=== PATIENT | male | born 1980 | race Caucasian/White ===

== ENCOUNTER 2019-08-09 19:22 | Emergency (ER) | payer OTHER ==
[2019-08-09] MEDS ORDERED: Lidocaine 1% with EPINEPHrine 1:100,000 20 ML MDV INJECT ONE (20:05)
[2019-08-09] MEDS ORDERED: Bupivacaine 0.5% 10 ML SDV INJECT ONE (20:05)
[2019-08-09] MEDS ORDERED: Cephalexin 500 MG Cap PO STA (20:10)
--- NOTE | 2019-08-09 20:17 | EDM.PDOC ---
ED HPI GENERAL MEDICAL PROBLEM - General Chief Complaint: Upper Extremity Injury/Pain Stated Complaint: ELBOW INJURY Time Seen by Provider: 08/09/19 19:42 Source of Information: Reports: Patient History Limitations: Reports: No Limitations - History of Present Illness INITIAL COMMENTS - FREE TEXT/NARRATIVE: Mr. Dudley is a very pleasant 39-year-old man with no chronic medical issues, who underwent right olecranon bursectomy in 2015 due to repeated bursitis. In August 2016 he had the same problem and underwent a left olecranon bursectomy. The patient now presents to the ED stating that he was holding a small child while seated on a couch this past 08/07/2019. When he shifted his arm, and a pop in his right elbow. On 08/08/2019, he developed soreness to his right elbow, particularly if he moved it. His elbow pain has increased since then, and now he can barely move his elbow. He noticed at night that the extensor surface was swollen and erythematous. No recent fever. The patient took Tylenol and ibuprofen yesterday, but none today. Here in the ED, the patient is afebrile. The patient keeps his right extremity extended at the elbow. The patient does not have a PCP. His Orthopedic Surgeon is in [place], [place]. The patient did not receive an influenza vaccine this season, and declined an offer for one here today. Right Elbow Pain Score (Numeric/FACES): 5 - Related Data Allergies Allergy/AdvReac Type Severity Reaction Status Date / Time No Known Allergies Allergy Verified 08/09/19 19:33 Home Meds: Home Meds Cephalexin [Keflex] 1 tab PO Q6H #28 capsule 08/09/19 [Rx] Past Medical History Endocrine/Metabolic History: Reports: Obesity/BMI 30+ - Past Surgical History HEENT Surgical History: Reports: Oral Surgery (wisdom teeth extraction) Musculoskeletal Surgical History: Reports: Other (See Below) (Bilateral olecranon bursectomy) Social & Family History - Tobacco Use Smoking Status *Q: Former Smoker Years of Tobacco use: 8 Packs/Tins Daily: 1 Month/Year Tobacco Last Used: Quit 2005 - Caffeine Use Caffeine Use: Reports: Coffee - Alcohol Use Alcohol Use History: Yes Alcohol Use Frequency: Socially - Recreational Drug Use Recreational Drug Use: No - Living Situation & Occupation Living situation: Reports: , with Spouse, with Family (3 kids) 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 ED EXAM, GENERAL - Physical Exam Exam: See Below Exam Limited By: No Limitations General Appearance: Alert, WD/WN, No Apparent Distress Extremities: Other (The patient is keeping his right elbow in extension. There is moderate swelling, mild erythema, calor, and tenderness over the extensor surface of the elbow, consistent with olecranon bursitis. No fluctuant pocket palpated. The patient is able to tolerate flexion of his elbow to only about 15- 20, limited by pain. Neurovascular status of the right upper extremity is intact.) Course - Vital Signs Last Recorded V/S: Last Vital Signs Temp 36.8 C 08/09/19 19:31 Pulse 100 08/09/19 19:31 Resp 16 08/09/19 19:31 BP 142/98 H 08/09/19 19:31 Pulse Ox 95 08/09/19 19:31 - Orders/Labs/Meds Meds: Medications Discontinued Medications Generic Name Dose Route Start Last Admin Trade Name Zackary PRN Reason Stop Dose Admin Cephalexin 500 mg 08/09/19 20:10 08/09/19 20:32 Keflex PO 08/09/19 20:11 500 mg ONETIME STA Administration Ibuprofen 600 mg 08/09/19 20:22 08/09/19 20:32 Motrin PO 08/09/19 20:23 600 mg ONETIME ONE Administration - Re-Assessments/Exams Free Text/Narrative Re-Assessment/Exam: 08/09/19 20:12 The patient has right olecranon bursitis, and the fact that he underwent bursectomy does not change that; the bursa grows back. I had initially intended to aspirate the bursa and make a decision on whether to start the patient on antibiotics based on the appearance of the fluid; if clear, no antibiotics, if cloudy, antibiotics, however, on close examination of the elbow, while his olecranon bursa is swollen, I find no fluctuant pocket to aspirate. I am therefore going to treat the patient conservatively by starting him on Keflex, and I will prescribe a 7-day course. He should also take ibuprofen around the clock. I would like him to follow-up with Dr. Buenrostro at the next available appointment. The patient states that he does not need a note for work. Departure - Departure Time of Disposition: 20:14 Disposition: Home, Self-Care 01 Condition: Good Clinical Impression: Olecranon bursitis, right elbow - Discharge Information *PRESCRIPTION DRUG MONITORING PROGRAM REVIEWED*: Not Applicable *COPY OF PRESCRIPTION DRUG MONITORING REPORT IN PATIENT MACRINA: Not Applicable Prescriptions: Cephalexin [Keflex] 1 tab PO Q6H #28 capsule Instructions: Elbow Bursitis Referrals: Pedro Buenrostro MD [Physician] - Forms: ED Department Discharge Additional Instructions: You were seen in the ER for right elbow pain and swelling. On examination, you have right olecranon bursitis. It is unclear if the bursa is infected, but to be on the safe side, you have been started on the antibiotic Keflex, and a prescription for Keflex has been sent to the [facility] located in the [employer] [facility]. Take one tablet of Keflex every 6 hours, starting around 2:00 in the morning, 08/10/2019 , as prescribed. Finish the entire prescription unless told otherwise by a doctor. Take [id number] ibuprofen, 3 tablets (600 mg) every 8 hours, with food, [id number]. Follow-up with the Orthopedic Surgeon Dr. Pedro Buenrostro at the next available appointment. If any other problems, please do not hesitate to return to the ER. Sepsis Event Note - Evaluation Sepsis Screening Result: No Definite Risk - Focused Exam Date Exam was Performed: 08/13/19 Time Exam was Performed: 17:16
[2019-08-09] MEDS ORDERED: Ibuprofen 600 MG Tab PO ONE (20:22)
== END 2019-08-09 20:37 | disposition home or self-care (01) ==
LOC: JD.ED 19:22
DX: M70.21 Olecranon bursitis, right elbow (principal); E66.9 Obesity, unspecified; Z98.890 Other specified postprocedural states; Z87.891 Personal history of nicotine dependence
CPT/HCPCS: 99283; A9270